=== PATIENT | male | born 1960 | race Caucasian/White ===

== ENCOUNTER → 2022-03-27 11:05 | Outpatient (BNVA) | payer MEDICAID, SELFPAY | PROVIDERS: PCP Internal Medicine; Visit Provider Surgery | DX: L72.0 Epidermal cyst (principal) | CPT/HCPCS: 99202 ==

== ENCOUNTER 2023-05-09 09:40 | Outpatient (REF) | payer MEDICAID, SELFPAY ==
[2023-05-09 12:24] LABS: Alanine Aminotransferase 22 U/L (0-40); Albumin Level 4.4 g/dL (3.5-5.0); Alkaline Phosphatase 102 U/L (39-117); Anion Gap 16 (12-20); Aspartate Amino Transferase 21 U/L (5-37); Bilirubin Direct 0.1 mg/dL (0.0-0.5); Bilirubin Total 0.3 mg/dL (0.0-1.0); Blood Urea Nitrogen 11 mg/dL (9-16); Calcium 9.8 mg/dL (8.4-10.2); Carbon Dioxide 23 mmol/L (22-29); Chloride 107 mmol/L (96-108); Cholesterol 178 mg/dL; Estimated Glomerular Filt Rate > 60; Glucose Random 123 mg/dL (60-115); HDL Cholesterol 33 mg/dL; LDL Cholesterol Calculated 121 mg/dl; Sodium 142 mmol/L (135-145); Triglycerides 124 mg/dL
== END 2023-05-09 09:41 | disposition home or self-care (01) ==
LOC: HO.HHCL 09:40
PROVIDERS: Visit Provider Registered Nurse
DX: Z00.00 Encounter for general adult medical examination without abnormal findings (principal); K74.60 Unspecified cirrhosis of liver
CPT/HCPCS: 36415; 80048; 80061; 80076

== ENCOUNTER 2024-07-09 10:49 | Outpatient (REF) | payer MEDICAID, SELFPAY ==
[2024-07-09 14:23] LABS: Prostate Specific Antigen Scr 1.63 ng/mL (<0.05-4.0)
[2024-07-09 14:28] LABS: Alanine Aminotransferase 17 U/L (0-40); Albumin Level 4.6 g/dL (3.5-5.0); Alkaline Phosphatase 115 U/L (39-117); Anion Gap 14 (12-20); Aspartate Amino Transferase 23 U/L (5-37); Bilirubin Total 0.2 mg/dL (0.0-1.0); Blood Urea Nitrogen 16 mg/dL (9-16); Calcium 10.1 mg/dL (8.4-10.2); Carbon Dioxide 26 mmol/L (22-29); Chloride 105 mmol/L (96-108); Cholesterol 211 mg/dL (<200); Estimated Glomerular Filt Rate > 60; Glucose Random 119 mg/dL (60-115); HDL Cholesterol 39 mg/dL (>40); LDL Cholesterol Calculated 147 mg/dL (<100); Potassium 4.8 mmol/L (3.3-5.1); Sodium 140 mmol/L (135-145); Total Protein 8.4 g/dL (6.5-8.0); Triglycerides 127 mg/dL (<150)
== END 2024-07-09 10:50 | disposition home or self-care (01) ==
LOC: HO.HHCL 10:49
PROVIDERS: Visit Provider Internal Medicine
DX: Z00.00 Encounter for general adult medical examination without abnormal findings (principal); K74.60 Unspecified cirrhosis of liver
CPT/HCPCS: 36415; 80053; 80061; 84153

== ENCOUNTER 2024-12-18 12:51 | Outpatient (REF) | payer MEDICAID, SELFPAY ==
--- NOTE | ~2024-12-18 | US_ITS ---
CLINICAL HISTORY: cirrhosis US abdomen complete. COMPARISON: US abdomen dated 11/30/17 at 08:11 EST Technique: Real time sonographic imaging, including color-flow imaging, was performed by the profile saw operator. Multiple customer operations representative static images were saved for review. FINDINGS: The visualized aorta and inferior vena cava are normal caliber. The visualized portions of the pancreas appear normal. The liver mildly heterogeneous. The main portal vein is antegrade. Liver, right lobe size: 14.4 cm, normal. The gallbladder is normal in size. No cholelithiasis or sludge identified. There is a negative sonographic Woodward's sign. Gallbladder wall: 2 mm, normal. Common bile duct: 5 mm, normal. Right kidney: Cortical medullary differentiation is maintained. Right renal cyst of the inferior pole measuring 0.4 x 0.5 x 0.4 cm. No hydronephrosis. Right kidney length: 10.1 cm Left kidney: Cortical medullary differentiation is maintained. No calculus or focal parenchymal abnormality identified. No hydronephrosis. Left kidney length: 10.4 cm The spleen has normal echogenicity. Likely small calcification present within the spleen, stable from prior imaging. Splenic length: 8.2 cm, normal. No free intraperitoneal fluid identified. IMPRESSION: 1. Mildly heterogeneous hepatic echotexture. No hepatic lesion identified. This document has been electronically signed by: Micha Montelongo MD on 12/18/2024 14:28:00
== END 2024-12-18 12:52 | disposition home or self-care (01) ==
LOC: HO.US 12:51
PROVIDERS: PCP Internal Medicine; Visit Provider Internal Medicine
DX: K74.60 Unspecified cirrhosis of liver (principal)
CPT/HCPCS: 76700

== ENCOUNTER → 2024-12-18 12:54 | Outpatient (BNV) | payer MEDICAID, SELFPAY | PROVIDERS: PCP Internal Medicine; Visit Provider Radiology Diagnostic Radiology | DX: K74.60 Unspecified cirrhosis of liver (principal) | CPT/HCPCS: 76700 ==